=== PATIENT | male | born 1985 | race African-American/Black ===

== ENCOUNTER 2019-05-29 17:23 | Emergency (ER) | payer MEDICAID ==
[~2019-05-29] VITALS: Ht 188 cm; Wt 83.6 kg
[2019-05-29 17:46] VITALS: BP 143/87
--- NOTE | 2019-05-29 18:33 | NUR ---
Patient and friend given discharge instructions and they have confirmed that they understand the instructions. Patient ambulatory with steady gait.
== END 2019-05-29 18:35 | disposition home or self-care (01) ==
LOC: ED 18:20
DX: L03.211 Cellulitis of face (principal); Z87.891 Personal history of nicotine dependence
CPT/HCPCS: 99283

== ENCOUNTER 2019-10-03 23:16 | Emergency (ER) | payer MEDICAID ==
[~2019-10-03] VITALS: Ht 188 cm; Wt 89.1 kg
[2019-10-03 23:20] VITALS: BP 142/95
[2019-10-04] MEDS ORDERED: ACETAMINOPHEN 500 MG TABLET ONE (00:57)
[2019-10-04] MEDS ORDERED: ACETAMINOPHEN 500 MG TABLET PO ONE (01:30)
== END 2019-10-04 01:07 | disposition home or self-care (01) ==
LOC: ED 10-04 00:20
DX: J02.8 Acute pharyngitis due to other specified organisms (principal); B97.89 Other viral agents as the cause of diseases classified elsewhere; F17.200 Nicotine dependence, unspecified, uncomplicated; Z21 Asymptomatic human immunodeficiency virus [HIV] infection status
CPT/HCPCS: 87081; 87880; 99283